=== PATIENT | female | born 1970 | race Caucasian/White ===

== ENCOUNTER 2017-06-22 15:33 | Emergency (ER) | payer OTHER ==
[2017-06-22 15:46] VITALS: BP 150/73; BMI 29.2
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
[2017-06-22] MEDS ORDERED: TORADOL 60 MG VIAL ONE (17:14)
[2017-06-22] MEDS ORDERED: TORADOL 60 MG VIAL IM ONE (17:16)
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
== END 2017-06-22 17:50 | disposition home or self-care (01) ==
LOC: ER 15:33
DX: Z04.3 Encounter for examination and observation following other accident (principal); V49.9XXA Car occupant (driver) (passenger) injured in unspecified traffic accident, initial encounter
CPT/HCPCS: 70450; 72125; 73030; 96372; 99282; 99283; 99284; J1885